=== PATIENT | female | born 1960 | race Caucasian/White ===

== ENCOUNTER 2018-07-10 07:56 | Day surgery (SDC) | payer MEDICAID ==
[~2018-07-10] VITALS: Ht 152.4 cm; Wt 59.0 kg
[2018-07-10] MEDS ORDERED: LIDOCAINE 2% 100 MG/5 ML UJET TP ONE (09:41)
[2018-07-10] MEDS ORDERED: fentaNYL 0.05 MG/ML VIAL ONE (09:41)
[2018-07-10] MEDS ORDERED: fentaNYL 0.05 MG/ML VIAL IVP SCH (10:50)
== END 2018-07-10 11:00 | disposition home or self-care (01) ==
LOC: MDS 07:56 → MMU 07:57 → MDS 11:00
PROVIDERS: ATTEND Internal Medicine Gastroenterology
DX: Z12.11 Encounter for screening for malignant neoplasm of colon (principal); D12.4 Benign neoplasm of descending colon; K64.8 Other hemorrhoids; Z88.2 Allergy status to sulfonamides; Z88.1 Allergy status to other antibiotic agents
CPT/HCPCS: 45385; J3010